=== PATIENT | male | born 1975 | race Two or more races ===

== ENCOUNTER 2021-05-05 12:08 | Emergency (ER) | payer OTHER ==
[~2021-05-05] VITALS: Ht 175.3 cm; Wt 89.8 kg
[2021-05-05 13:55] VITALS: BP 126/79
== END 2021-05-05 15:51 | disposition home or self-care (01) ==
LOC: ER 12:08
DX: S20.213A Contusion of bilateral front wall of thorax, initial encounter (principal); V43.52XA Car driver injured in collision with other type car in traffic accident, initial encounter; Y93.89 Activity, other specified; Y92.488 Other paved roadways as the place of occurrence of the external cause; Y99.8 Other external cause status
CPT/HCPCS: 71250; 93005